=== PATIENT | male | born 1955 | race Two or more races ===

== ENCOUNTER 2019-08-20 15:11 | Inpatient (IN) | payer OTHER ==
[~2019-08-20] VITALS: Ht 180.3 cm; Wt 118.4 kg
[2019-08-20] MEDS ORDERED: SODIUM CHLORIDE 0.9% 1,000 ML IV ONE (15:22)
[2019-08-20] MEDS ORDERED: HYDROmorphone HCL 2 MG/ML VL IV ONE (15:30)
[2019-08-20] MEDS ORDERED: ONDANSETRON HCL 4 MG/2 ML VIAL IV ONE (15:30)
[2019-08-20 15:58] LABS: Basophils # (auto) 0 10 ^3/uL (0-0.2); Basophils % (auto) 0.4 % (0.0-2.0); Eosinophils # (auto) 0.1 10 ^3/uL (0-0.8); Eosinophils % (auto) 0.9 % (0.0-7.0); Hematocrit 44.7 % (41.0-53.0); Hemoglobin 14.9 g/dL (13.5-17.5); Lymphocytes % (auto) 13.6 % (10.0-50.0); Mean Corpuscular Hemoglobin 33.7 pg (28.0-32.0); Mean Corpuscular Hgb Conc. 33.4 g/dL (32.0-36.0); Mean Corpuscular Volume 100.9 fL (80.0-100.0); Monocytes # (auto) 0.4 10 ^3/uL (0-1.3); Monocytes % (auto) 5.6 % (0.0-12.0); Neutrophils # (auto) 6.1 10 ^3/uL (1.6-8.6); Neutrophils % (auto) 79.5 % (37.0-80.0); Platelet Count (auto) 143 10^3/uL (140-450); Red Blood Cells 4.43 10^6/uL (4.5-5.90); Red Cell Distribution Width 13.3 % (11.8-14.3); White Blood Cell 7.6 10^3/uL (4.4-10.8)
[2019-08-20 16:15] LABS: Albumin 3.1 g/dL (3.4-5.0); Anion Gap 8 (5-15); Blood Urea Nitrogen 20 mg/dL (7-18); Calcium 8.6 mg/dL (8.5-10.1); Carbon Dioxide 24 mmol/L (21-32); Chloride 111 mmol/L (98-107); Glucose 113 mg/dL (74-106); Potassium 3.7 mmol/L (3.5-5.1); Sodium 143 mmol/L (136-145)
[2019-08-20 16:18] LABS: INR 1.11 (0.9-1.15); Partial Thromboplastin Time 27.3 sec (23.64-32.05)
[2019-08-20 16:22] LABS: Alanine Aminotransferase 35 U/L (16-61); Alkaline Phosphatase 119 U/L (45-117); Aspartate Aminotransferase 29 U/L (15-37); BUN/Creatinine Ratio 22.5; Bilirubin, Total 0.9 mg/dL (0.2-1.0); GFR African American 110 mL/min; GFR Non-African American 91 mL/min; Total Protein 6.7 g/dL (6.4-8.2)
[2019-08-20] MEDS ORDERED: ZOLPIDEM TARTRATE 5 MG TAB PO PRN (17:15)
[2019-08-20] MEDS ORDERED: HYDROcodone-ACET 10/325MG TAB PO PRN (17:15)
[2019-08-20] MEDS ORDERED: ONDANSETRON HCL 4 MG/2 ML VIAL IV PRN (17:15)
[2019-08-20] MEDS ORDERED: NITROGLYCERIN 0.4 MG SL TAB SL PRN (17:15)
[2019-08-20] MEDS ORDERED: MORPHINE SULF INJ 2 MG/ML SYRINGE 1ML IV PRN (17:15)
[2019-08-20] MEDS ORDERED: LORazepam 0.5 MG TAB PO PRN (17:15)
[2019-08-20] MEDS: SODIUM CHLORIDE 0.9% 1,000 ML IV SCH (17:27)
--- NOTE | 2019-08-20 18:30 | NUR ---
Telemetry admit from ER EDWINMIRNA admitted to Telemetry unit NO SBAR received. Patient oriented to KIMBERLY ZAPIEN,RN primary RN, unit, room, bed, and unit policies regarding patient care and visiting hours. Patient now on continuous telemetry monitoring, tele box #[id number] and telemetry reading on arrival to unit is 71 BPM. Patient placed on bedside oxygen @ 2L N/C, weighed by bedscale and encouraged to call if they need something. Patient vomiting upon arrival, will medicate per MD orders. Bed in lowest/locked position, bed rails upx2, call light within reach. All questions and concerns addressed, patient verbalized understanding.
[2019-08-20] MEDS ORDERED: ATOR20TA50 PO (18:53)
[2019-08-20] MEDS ORDERED: LOSA-39 PO (18:53)
--- NOTE | 2019-08-20 19:30 | NUR ---
CARDIO GYN PHYSICIAN DELMY FOR CARDIOLOGY AT BEDSIDE FOR CARDIAC CLEARANCE FOR SURGERY AND PATIENT WITH JUNCTIONAL/AFIB ON MONITOR.
[2019-08-20] MEDS ORDERED: DIGOXIN (250MCG/ML) 2 ML AMPULE IV ONE (19:45)
--- NOTE | 2019-08-20 20:15 | NUR ---
JUNCTIONAL/AFIB RECEIVED ORDER FROM SERENE BROCK TO GIVE PATIENT DIGOXIN 250MCG IV X1 AND START PATIENT ON METROPOLOL 12.5MG PO BID. PATIENT CURRENTLY AFIB 110-120S AND SUSTAINING, BP 142/94 HR 125. PATIENT IN NO APPARENT CARDIAC OR PULMONARY DISTRESS. ADMINISTERED DIGOXIN 250MCG IV X1 PRESCRIBED. PATIENT HR CAME DOWN TO 70-90 AFIB. PATIENT TOLERATED WELL WILL CONTINUE TO MONITOR PATIENT.
[2019-08-20] MEDS: ATORVASTATIN 20 MG TAB PO SCH (21:02)
[2019-08-20 21:21] LABS: Cholesterol 124 mg/dL (< 200); Triglycerides 42 mg/dL (< 150)
[2019-08-20 21:23] LABS: HDL Cholesterol 74 mg/dL (40-59); LDL Cholesterol 47 mg/dL (< 100)
[2019-08-20] MEDS ORDERED: METOPROLOL TARTRATE 1MG/1ML-5ML VIAL IV PRN (21:30)
[2019-08-20] MEDS ORDERED: hydrALAZINE HCL 20 MG/ML VL IV PRN (21:30)
[2019-08-20] MEDS ORDERED: MULTIPLE VITAMIN TAB PO ONE (21:45)
[2019-08-20] MEDS ORDERED: THIAMINE HCL 100 MG TAB PO ONE (21:45)
[2019-08-20] MEDS ORDERED: FOLIC ACID 1 MG TAB PO ONE (21:45)
[2019-08-20] MEDS ORDERED: CALCIUM W/VIT D (600MG/400IU) TAB PO ONE (21:45)
[2019-08-20 22:00] VITALS: BP 142/94
[2019-08-20] MEDS ORDERED: METOPROLOL TARTRATE 25 MG TAB PO SCH (22:00)
--- NOTE | 2019-08-20 22:30 | NUR ---
SURGERY PATIENT HAS NO ORDERS FOR SURGERY NO ORDERS FOR CONSENT. CHARGE NURSE SOFY LOOKED AT OR SCHEDULE PATIENT IS NO ON THE LIST FOR TOMORROW 08/20. THERE WAS A NURSING NOTE THAT DR AGOSTO WAS AT BEDSIDE WHILE PATIENT WAS IN THE ER. SPOKE WITH THE PATIENT AND HE STATES DR AGOSTO WAS GOING TO DO HIS SURGERY TOMORROW 08/20. INFORMED PATIENT TO REMAIN NPO AFTER MIDNIGHT IN PREPARATION OF SURGERY FOR HIS RIGHT ANKLE FRACTURE WITH DR AGOSTO. PATIENT VERBALIZES UNDERSTANDING.
[2019-08-20] MEDS: FAMOTIDINE 20 MG TAB PO SCH (22:42)
[2019-08-20 23:03] LABS: Urine Bacteria NONE SEEN /hpf (None Seen); Urine Blood Negative /uL (Negative); Urine Mucus FEW (None Seen); Urine WBC <1 /hpf (0 - 3)
[2019-08-21 05:30] VITALS: BP 123/62
[2019-08-21 06:03] LABS: Basophils # (auto) 0 10 ^3/uL (0-0.2); Basophils % (auto) 0.3 % (0.0-2.0); Eosinophils # (auto) 0 10 ^3/uL (0-0.8); Eosinophils % (auto) 0.1 % (0.0-7.0); Neutrophils # (auto) 5.1 10 ^3/uL (1.6-8.6)
[2019-08-21 06:06] LABS: Hematocrit 39.5 % (41.0-53.0); Hemoglobin 13.4 g/dL (13.5-17.5); Lymphocytes % (auto) 14.4 % (10.0-50.0); Mean Corpuscular Hemoglobin 34.1 pg (28.0-32.0); Mean Corpuscular Volume 100.4 fL (80.0-100.0); Monocytes # (auto) 0.7 10 ^3/uL (0-1.3); Monocytes % (auto) 10.2 % (0.0-12.0); Platelet Count (auto) 132 10^3/uL (140-450); Red Blood Cells 3.93 10^6/uL (4.5-5.90); White Blood Cell 6.8 10^3/uL (4.4-10.8)
[2019-08-21 06:22] LABS: Albumin 2.8 g/dL (3.4-5.0); Calcium 8.4 mg/dL (8.5-10.1); Magnesium 2.2 mg/dL (1.6-2.6); Potassium 4.2 mmol/L (3.5-5.1)
[2019-08-21] MEDS: SODIUM CHLORIDE 0.9% 1,000 ML IV SCH ×2 (06:23→21:30)
[2019-08-21 06:26] LABS: % Iron Saturation 30.4 % (20-55)
[2019-08-21 06:27] LABS: INR 1.12 (0.9-1.15); Partial Thromboplastin Time 26.6 sec (23.64-32.05)
[2019-08-21 06:28] LABS: BUN/Creatinine Ratio 26.6; Bilirubin, Total 1.1 mg/dL (0.2-1.0)
[2019-08-21 06:29] LABS: Folate (Folic Acid) > 24.00 ng/mL (5.38-24)
--- NOTE | 2019-08-21 06:29 | NUR ---
PATIENT REMAIN NPO AFTER MIDNIGHT FOR POSSIBLE SURGERY TODAY WITH DR AGOSTO. PATIENT HAS NO COMPLAINTS OF PAIN OR ANY DISCOMFORT. PATIENT IS SR-SB 50-60 ON MONITOR. PATIENT HAS SPLINT TO RLE CLEAN DRY AND INTACT ELEVATED WITH PILLOW WITH +CMS. WILL CONTINUE TO MONITOR PATIENT.
--- NOTE | 2019-08-21 07:45 | NUR ---
Opening Shift Note Assumed care of patient, awake, alert, and oriented. No S/S of distress/SOB or pain. Bed in lowest/locked position, bed rails up x2, call light within reach. Instructed on POC and to call for assist PRN. Will continue to monitor for changes Q1hr and PRN.
--- NOTE | 2019-08-21 07:55 | NUR ---
OR CALLED OR RE: PATIENT ON LIST FOR ORTHOPEDIC SURGERY. PER ELIZABETH, "PATIENT NOT ON LIST, HOWEVER, COULD BE ADDED." WILL KEEP PATIENT NPO
[2019-08-21] MEDS: FERROUS SULFATE 325 MG TAB PO SCH ×2 (08:00→17:32)
[2019-08-21] MEDS: CALCIUM W/VIT D (600MG/400IU) TAB PO SCH ×2 (08:00→17:33)
--- NOTE | 2019-08-21 08:45 | NUR ---
OR RECEIVED CALL FROM OR FROM ELIZABETH RE: PATIENT HAS BEEN ADDED TO SCHEDULE. WILL NOTIFY PATIENT
[2019-08-21 08:49] VITALS: BP 133/73
[2019-08-21] MEDS: FOLIC ACID 1 MG TAB PO SCH (10:00)
[2019-08-21] MEDS: ENOXAPARIN SOD 40 MG/0.4 ML SYRINGE SC SCH (10:00)
[2019-08-21] MEDS ORDERED: METOPROLOL TARTRATE 25 MG TAB PO SCH (10:00)
[2019-08-21] MEDS: MULTIPLE VITAMIN TAB PO SCH (10:00)
[2019-08-21] MEDS: THIAMINE HCL 100 MG TAB PO SCH (10:00)
[2019-08-21] MEDS: FAMOTIDINE 20 MG TAB PO SCH ×2 (10:00→21:30)
[2019-08-21] MEDS: DOCUSATE SOD 100 MG CAP PO SCH (10:00)
[2019-08-21] MEDS ORDERED: OPTISON 3ml Vial for INJ IV ONE (10:57)
--- NOTE | 2019-08-21 12:18 | NUR ---
OFF UNIT PATIENT TAKEN TO OR. NO S/S OF DISTRESS, SOB, OR PAIN
[2019-08-21 12:30] VITALS: BP 136/61
[2019-08-21] MEDS ORDERED: ceFAZolin 1GM/50ML 50 ML IV ONE (12:47)
[2019-08-21] MEDS ORDERED: ROPIVACAINE 0.5% (5MG/ML) 20ML AMPULE IJ ONE (12:48)
[2019-08-21] MEDS ORDERED: SUCCINYLCHOLINE CHLORIDE 20 MG/ML 10ML VIAL IV ONE (13:01)
[2019-08-21] MEDS ORDERED: fentaNYL CITRATE 100 MCG/2 ML VL ONE (13:05)
[2019-08-21] MEDS ORDERED: PROPOFOL 10 MG/ML 20 ML IV ONE (13:06)
[2019-08-21] MEDS ORDERED: hydrALAZINE HCL 20 MG/ML VL IV PRN (14:30)
[2019-08-21] MEDS ORDERED: ONDANSETRON HCL 4 MG/2 ML VIAL IV PRN (14:30)
[2019-08-21] MEDS ORDERED: MORPHINE SULFATE 4 MG/ML SYR/VIAL IV PRN (14:30)
[2019-08-21] MEDS ORDERED: ePHEDrine SULFATE 50 MG/ML AMP IV PRN (14:30)
--- NOTE | 2019-08-21 15:25 | NUR ---
ON UNIT PATIENT RETURNED TO UNIT. SCD PLACED TO LEFT FOOT. NO C/O PAIN AT THIS TIME. WILL CONTINUE TO MONITOR
[2019-08-21 17:07] VITALS: BP_SYST 129
[2019-08-21 17:12] VITALS: BP 129/70
[2019-08-21] MEDS ORDERED: HYDROmorphone HCL 2 MG/ML VL IV PRN (17:30)
[2019-08-21] MEDS: ATORVASTATIN 20 MG TAB PO SCH (21:30)
[2019-08-21 21:35] VITALS: BP 143/65
[2019-08-22 04:06] LABS: RPR Non Reactive (Non Reactive)
[2019-08-22 05:00] VITALS: BP 145/86
[2019-08-22] MEDS ORDERED: IOHEXOL 350 MG/ML 100ML IJ ONE (07:50)
[2019-08-22 08:00] VITALS: BP 124/94
--- NOTE | 2019-08-22 08:00 | NUR ---
ASSESSMENT NOTE PT IS ALERT ORIENTED X4, RESTING I BED COMFORTABLY, ABLE TO SELF REPOSITION NEEDED, RT FOOT/LEG COVER WITH WILL WRAP, ELEVATED ON A PILLOW, USE URINAL NEEDED, FALL RISK PRECAUTIONS, CALL LIGHT WITHIN REACH
[2019-08-22 09:00] VITALS: BP 137/73
--- NOTE | 2019-08-22 09:10 | NUR ---
DR MCNAMARA AT BED SIDE FOLLOWING UP ON PT, PT IS REFUSING TO TAKE DILAUDID, REQUESTING TO BE SWITCH TO MORPHINE
[2019-08-22] MEDS: SODIUM CHLORIDE 0.9% 1,000 ML IV SCH ×2 (09:15→22:44)
[2019-08-22] MEDS: THIAMINE HCL 100 MG TAB PO SCH (09:20)
[2019-08-22] MEDS: ENOXAPARIN SOD 40 MG/0.4 ML SYRINGE SC SCH (09:20)
[2019-08-22] MEDS: MULTIPLE VITAMIN TAB PO SCH (09:20)
[2019-08-22] MEDS: CALCIUM W/VIT D (600MG/400IU) TAB PO SCH ×2 (09:21→17:28)
[2019-08-22] MEDS: FAMOTIDINE 20 MG TAB PO SCH ×2 (09:21→22:02)
[2019-08-22] MEDS: FOLIC ACID 1 MG TAB PO SCH (09:21)
[2019-08-22] MEDS: ASPirin 81 mg TAB PO SCH (09:21)
[2019-08-22] MEDS: FERROUS SULFATE 325 MG TAB PO SCH ×2 (09:21→17:28)
[2019-08-22] MEDS: ATENOLOL 25 MG TAB PO SCH (09:22)
[2019-08-22] MEDS: DOCUSATE SOD 100 MG CAP PO SCH (09:25)
[2019-08-22] MEDS: MORPHINE SULF INJ 2 MG/ML SYRINGE 1ML IV PRN ×2 (09:31→22:03)
--- NOTE | 2019-08-22 11:30 | NUR ---
PHYSICAL THERAPY AT BED SIDE ASSISTING PT TO GET OUT OF BED
[2019-08-22 13:00] VITALS: BP 124/62
[2019-08-22 16:52] VITALS: BP 101/62
--- NOTE | 2019-08-22 18:32 | NUR ---
PT CONTINUE STABLE, CONTINUE MONITORING
--- NOTE | 2019-08-22 19:55 | NUR ---
OPEN NOTE assumed care of pt. upon entering room pt awake, alert and oriented x4. pt on room air no dsitress noted or expressed. pt reports pain is tolerable in right ankle of 3/0-10 scale. pt dressing is clean dry intact and pt able to move toes and reports sensation is intact and cap refill is less than 3 seconds. pt updated on plan of care. bed locked, low and 2x rails up. call light in reach, will round q1hr and prn.
[2019-08-22 22:00] VITALS: BP 118/56
[2019-08-22] MEDS: ATORVASTATIN 20 MG TAB PO SCH (22:02)
[2019-08-23 05:56] VITALS: BP 130/67
[2019-08-23 08:00] VITALS: BP 137/73
--- NOTE | 2019-08-23 08:20 | NUR ---
DR MCNAMARA AT BED SIDE FOLLOWING UP ON PT
[2019-08-23] MEDS: ENOXAPARIN SOD 40 MG/0.4 ML SYRINGE SC SCH (08:59)
[2019-08-23] MEDS: FERROUS SULFATE 325 MG TAB PO SCH ×2 (08:59→18:02)
[2019-08-23] MEDS: ASPirin 81 mg TAB PO SCH (08:59)
[2019-08-23] MEDS: MULTIPLE VITAMIN TAB PO SCH (08:59)
[2019-08-23 09:00] VITALS: BP 132/57
[2019-08-23] MEDS: FAMOTIDINE 20 MG TAB PO SCH ×2 (09:00→22:04)
[2019-08-23] MEDS: THIAMINE HCL 100 MG TAB PO SCH (09:00)
[2019-08-23] MEDS: FOLIC ACID 1 MG TAB PO SCH (09:00)
[2019-08-23] MEDS: CALCIUM W/VIT D (600MG/400IU) TAB PO SCH ×2 (09:00→18:02)
[2019-08-23] MEDS: DOCUSATE SOD 100 MG CAP PO SCH (09:01)
[2019-08-23] MEDS: MORPHINE SULF INJ 2 MG/ML SYRINGE 1ML IV PRN ×2 (09:09→19:59)
--- NOTE | 2019-08-23 10:20 | NUR ---
PHYSICAL THERAPY KIMO AT BED SIDE
[2019-08-23] MEDS: ATENOLOL 25 MG TAB PO SCH (10:30)
[2019-08-23 13:00] VITALS: BP 142/81
[2019-08-23 17:13] VITALS: BP 136/69
[2019-08-23] MEDS: SODIUM CHLORIDE 0.9% 1,000 ML IV SCH (18:02)
--- NOTE | 2019-08-23 18:29 | NUR ---
PT CONTINUE STABLE, CONTINUE MONITORING
--- NOTE | 2019-08-23 20:03 | NUR ---
open note assumed care of pt, upon entering room pt awake, alert and oriented x4. pt on room air no dsitres noted or expressed. pt reports pain in surgically repaired right ankle 8/0-10. this nurse to medicate per MD and MAR. pt updated on plan of care. pt reports good sensation in right toes, cap refill os less than 3 seconds and patient is able to move toes without issue. pt bed locked, low and 2x rails up. call light in reach, this nurse to round q1hr and prn. pt encrouaged to call as needed.
[2019-08-23 22:03] VITALS: BP 133/68
[2019-08-23] MEDS: ATORVASTATIN 20 MG TAB PO SCH (22:04)
[2019-08-24] MEDS: SODIUM CHLORIDE 0.9% 1,000 ML IV SCH ×2 (03:40→14:35)
[2019-08-24 04:59] VITALS: BP 143/77
[2019-08-24] MEDS: CALCIUM W/VIT D (600MG/400IU) TAB PO SCH (08:05)
[2019-08-24] MEDS: FERROUS SULFATE 325 MG TAB PO SCH (08:05)
[2019-08-24 09:00] VITALS: BP 133/64
[2019-08-24] MEDS: FOLIC ACID 1 MG TAB PO SCH (09:33)
[2019-08-24] MEDS: ASPirin 81 mg TAB PO SCH (09:33)
[2019-08-24] MEDS: DOCUSATE SOD 100 MG CAP PO SCH (09:34)
[2019-08-24] MEDS: THIAMINE HCL 100 MG TAB PO SCH (09:34)
[2019-08-24] MEDS: FAMOTIDINE 20 MG TAB PO SCH (09:34)
[2019-08-24] MEDS: MULTIPLE VITAMIN TAB PO SCH (09:34)
[2019-08-24] MEDS: ATENOLOL 25 MG TAB PO SCH (09:35)
[2019-08-24] MEDS: MORPHINE SULF INJ 2 MG/ML SYRINGE 1ML IV PRN ×2 (10:00→17:07)
--- NOTE | 2019-08-24 10:49 | NUR ---
SPOKE TO KAILYN ABOUT CONSULT FOR HOME PT SHE SAID SHE FAXED IT TO [facility] [facility].
[2019-08-24] MEDS: ENOXAPARIN SOD 40 MG/0.4 ML SYRINGE SC SCH (10:51)
--- NOTE | 2019-08-24 11:04 | NUR ---
I faxed home health and walker order to [facility].
--- NOTE | 2019-08-24 12:02 | NUR ---
I received a call from [facility]worker Hermann letting me know that patient's walker will be delivered to bedside within 4 hours from [facility], and they will contact patient regarding home health arrangements. I relayed this information to nurse Jessica-once patient receives walker he can go home.
[2019-08-24 13:00] VITALS: BP 138/63
[2019-08-24 15:02] VITALS: BP 133/64
[2019-08-24 17:00] VITALS: BP 135/70
== END 2019-08-24 17:44 | disposition home health service (06) | DRG 492 ==
LOC: ER 15:11 → TELE 15:12 → TELE-CENTR 18:26
PROVIDERS: ADMIT Hospitalist; ATTEND Family Medicine
PROC: 0QSJ04Z Reposition Right Fibula with Internal Fixation Device, Open Approach (ICD-10-PCS; principal; 2019-08-21 12:55)
DX: S82.61XA Displaced fracture of lateral malleolus of right fibula, initial encounter for closed fracture (principal); N17.0 Acute kidney failure with tubular necrosis; E44.0 Moderate protein-calorie malnutrition; E11.9 Type 2 diabetes mellitus without complications; E66.01 Morbid (severe) obesity due to excess calories; E78.5 Hyperlipidemia, unspecified; W18.39XA Other fall on same level, initial encounter; I10 Essential (primary) hypertension; I45.10 Unspecified right bundle-branch block; I48.0 Paroxysmal atrial fibrillation; Z88.5 Allergy status to narcotic agent; Z98.84 Bariatric surgery status; Z79.899 Other long term (current) drug therapy; Y93.89 Activity, other specified; Y92.89 Other specified places as the place of occurrence of the external cause; Y99.8 Other external cause status; Z68.38 Body mass index [BMI] 38.0-38.9, adult
CPT/HCPCS: 36415; 71045; 71275; 73600; 73610; 76000; 80053; 80061; 81001; 82306; 82607; 82746; 83036; 83540; 83550; 83735; 84443; 84484; 85025; 85045; 85379; 85610; 85730; 86592; 93005; 93306; 93970; 97116; 97163; 97530; G0378; J0330; J0690; J2405; J2704; Q9956